=== PATIENT | male | born 1960 | race Caucasian/White ===

== ENCOUNTER 2021-08-02 01:15 | Outpatient (CLI) | payer BC, SELFPAY ==
--- NOTE | 2021-08-02 09:15 | DI.NM_ITS ---
APPROVED REPORT Exam: Pharmacologic paired w/ low level exercise Patient Location: Out-Patient Room/Bed: Stress Nurse: Milla Gustafson RN Ordering Provider:FARA SHANKAR MD Contact Number: [phone] BMI: 49.75 Baseline Rhythm: Sinus Rhythm Indications: CHEST PAIN Medical History Medical History: Syncope, Pacemaker, HTN, HLD, DM, COPD, Asthma, Obesity Cardiac Medications: Aspirin, Atorvastatin, Losartan, Metformin, Metoprolol succinate, Toresemide Allergies: NKDA Cardiac Risk Factors: FHX of CAD, HTN, Hyperlipidemia, DM, Asthma, COPD, Smoking (former), Obesity Previous Cardiac Procedures: Pacemaker (6 or 7 years ago) Pretest Chest Pain Characteristics: No chest pain Exercise History: Sedentary Physical Disabilities: None Lung Sounds: Expiratory rhonchi noted in right lung field Heart Sounds: Regular Stress Test Details Test: Exercise stress converted to pharmacologic stress due to failure to obtain a diagnostic stress test. Reason for pharmacologic stress test: changed from exercise stress test due to inability to reach t arget heart rate. Nuclear Acquisition: Rest Tc-99m/Stress Tc-99m 1 day Rest Isotope: Tc-99m Sestamibi. Dose: 13.5 Date: 08/02/2021 Injection Time: 0920 Stress Isotope: Tc-99m Sestamibi. Dose: 45.1 Date: 08/02/2021 Injection Time: 1100 HR Resting HR Supine: 86 bpm Max Heart Rate (APMHR): 159.937935 bpm Resting HR Standin bpm Target HR (85% APMHR): 135.688875 bpm Max HR Achieved: 121 bpm % of APMHR: 76.10 Recovery HR: 103 bpm BP Resting BP Supine: 112/84 mmHg Resting BP Standin/80 mmHg Max BP: 132/84 mmHg Recovery BP: 110/82 mmHg ECG Resting ECG: Sinus Rhythm Ectopy: None Stress ECG: Sinus Tachycardia ST Change: No significant ST segment changes noted Arrhythmia: None Recovery ECG: Sinus Tachycardia Recovery ST Change: No significant ST segment changes noted Recovery Arrhythmia: None Clinical Reason for Termination: Dyspnea Stress Symptoms: Dyspnea Exercise duration: 2 min35 sec Rate Pressure Product: [id number] Stress ECG Conclusion 1. Resting electrocardiogram showed right axis deviation, poor R wave progression 2. Patient underwent low-level exercise coupled with pharmacologic stress with regadenoson 3. Peak heart rate achieved was 76% of predicted for age 4. Electrocardiographic portion of the test was nondiagnostic due to inadequate heart rate 5. See MPI results Stress Test Summary STAGE Time (mins) Speed (mph) Grade (%) HR BP SYMPTOMS METS Supine 86 112/84 Standing 93 112/80 SpO2 98% 1 3 1.7 10 SpO2 88%, moderate SOB 4.6 1 min post Lexiscan injection 119 132/84 SpO2 92% severe SOB 3 min post Lexiscan injection 117 118/82 SpO2 92%, moderate SOB 6 min post Lexiscan injection 108 110/82 SOB resolved 9 min post Lexiscan injection 103 [place] protocol changed to walking neel d/t inability to reach THR. Patient walked on treadmill at 0.8 mph and 0% grade while receiving lexiscan injection. MPI Conclusion Normal myocardial perfusion without ischemia or evidence of prior infarction EF 75%, normal wall motion Radiologist Interpretation Radiologist Interpretation by: Miguel Guerrero MD Interpretation Date/Time: 08/03/2021 16:17:07
[2021-08-02] MEDS: Regadenoson 0.4 MG/5 ML SYR IVP (11:09)
== END 2021-08-02 01:35 ==
PROVIDERS: Visit Provider Internal Medicine Interventional Cardiology
DX: R07.89 Other chest pain (principal); I10 Essential (primary) hypertension; J44.9 Chronic obstructive pulmonary disease, unspecified; J45.998 Other asthma; E66.9 Obesity, unspecified; Z87.891 Personal history of nicotine dependence; Z95.0 Presence of cardiac pacemaker
CPT/HCPCS: 78452; 93017; J2785